=== PATIENT | male | born 1980 | race Caucasian/White ===

== ENCOUNTER 2018-10-05 10:16 | Day surgery (SDC) | payer BC ==
[2018-10-04 10:48] VITALS: BMI 28.3
[2018-10-05] MEDS ORDERED: Clindamycin/D5W 600 mg/50 ml Premix Bag ONE (11:33)
[2018-10-05] MEDS ORDERED: Fentanyl 100 MCG/2 ML VIAL ONE ×2 (11:36→14:05)
[2018-10-05] MEDS ORDERED: Midazolam HCl 2 mg/2 ml Vial ONE (11:36)
[2018-10-05 11:39] LABS: Hemoglobin 15.5 g/dL (14.0-18.0); Mean Corpuscular HGB CONC 34.4 g/dL (32.0-36.0); Mean Corpuscular Hemoglobin 32.1 pg (27.0-31.0); Mean Corpuscular Volume 93.5 fL (78.0-98.0); Mean Platelet Volume 8.8 fL (7.4-10.4); Platelet Count 274 thou/uL (130-400); RBC Distribution Width 11.6 % (11.5-14.5); Red Blood Cell (RBC) Count 4.82 mill/uL (4.70-6.10); White Blood Cell (WBC) Count 5.7 thou/uL (4.8-10.8)
[2018-10-05] MEDS ORDERED: Lidocaine 1% (PF) 30 ML VIAL ONE (11:47)
[2018-10-05] MEDS ORDERED: Bupivacaine HCl 0.5%/Epinephrine 1:200,000/PF 30 ml Vial ONE ×2 (13:14→15:48)
--- NOTE | 2018-10-05 14:20 | RAD ---
TWO AP INTRAOPERATIVE FLUOROSCOPIC IMAGES LEFT ELBOW/FOREARM: Date: 10-05-18 History: Left biceps tendon repair. FINDINGS/IMPRESSION: There is a small metallic bar overlying the proximal fibula likely related to patient's history of bi ceps tendon repair. Correlation with intraoperative findings is recommended. POS: Oksana
[2018-10-05] MEDS ORDERED: HYDROcodone/Acetaminophen 5/325 mg Tablet ONE (15:28)
--- NOTE | 2018-10-05 15:56 | OP ---
DATE OF PROCEDURE: 10/05/2018 PREOPERATIVE DIAGNOSIS: Left distal biceps rupture. POSTOPERATIVE DIAGNOSIS: Left distal biceps rupture. PROCEDURE PERFORMED: Left distal biceps repair. ASSOCIATE MEDIA DIRECTOR: Bandar Cha PA-C. ANESTHESIA: Pierre. The patient received an LMA supraclavicular single shot and 10 mL of Marcaine with epinephrine 0.5% within the wound. ESTIMATED BLOOD LOSS: 20 mL. TOURNIQUET TIME: 49 minutes at 250 mmHg. ANTIBIOTICS: Clindamycin 600 mg. The patient received Arthrex biceps tendon repair kit with TightRope. COMPLICATIONS: None. HISTORY OF PRESENT ILLNESS: Mr. 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 The patient had MRI evidence of a full-thickness biceps tendon tear. I discussed with the patient the risks and benefits of biceps tendon repair to include pain, scar, bleeding, infection, damage to vital structures, nerves, arteries and tendons, need for further surgery, failure of procedure, continued pain despite surgical intervention of the patient, and rerupture of the tendon. The patient understood the risks and benefits of the procedure and would like to proceed. DESCRIPTION OF PROCEDURE: Time-out was performed designating the patient's left upper extremity as the operative site, based on site, consents, and marking. After time-out, the patient's tourniquet was brought up for 49 minutes, I made an incision down through the patient in an oblique fashion along the border of the brachioradialis breaking back across the flexor crease just slightly to expose the patient's first at the lateral antebrachial cutaneous nerve which was protected and retracted laterally. We then found the patient's interval between his pronator and his brachialis came down onto, blunt dissected down into the remnant of biceps sheath and found the patient's leash of Claus, bluntly dissect down and find the patient's bicipital tuberosity. The biceps and lacertus was ruptured and torn off. The patient's biceps were retracted. We pulled it out to length. It looked little tendinopathic and thin_, but I still had a full length of the tendon. I oversewed some of the sheath to the biceps by using my running #2 FiberLoop and passed through about eight passes and passed it out at the end of the tendon. I felt like I was happy with the 2nd half size and moved back to the patient's passing the TightRope underneath the leash of Claus and moved back to the patient's tuberosity. I looked under radiographic findings, it shows in the tuberosity I drilled bicortically. I then drilled a 7.5 and passed my button in and flipped it, and folded the tendon underneath the leash of Claus to ensure I had good firm fixation, and pulled it taut. The patient was about 30 degrees taut. I pulled it as tight as I could. I then passed sutures through the biceps and pulled again and then sewed down holding the biceps in place, was happy with patient's repair. We then washed and we closed with 2-0 and 3-0 nylon and placed a 10 mL of Marcaine into the open space with bleeding. Because the patient had some tendinopathy, I did not like the patient's biceps, I put him in a splint, which I will keep on just for one week before FROM range of motion. He follow up with me in about 10 to 14 days to remove sutures and begin more formal range of motion. Job ID: [id number] [facility]
[2018-10-05] MEDS ORDERED: Lidocaine 1% PF 5 ML VIAL ONE (17:25)
[2018-10-05] MEDS ORDERED: PROPOFOL 200 MG/20 ML VIAL ONE (17:25)
== END 2018-10-05 16:30 | disposition home or self-care (01) ==
LOC: SDC 10:16
PROVIDERS: ATTEND Orthopaedic Surgery
PROC: 0LM40ZZ Reattachment of Left Upper Arm Tendon, Open Approach (ICD-10-PCS; principal; 2018-10-05)
PROC: 3E0T3BZ Introduction of Anesthetic Agent into Peripheral Nerves and Plexi, Percutaneous Approach (ICD-10-PCS; 2018-10-05)
DX: S46.212A Strain of muscle, fascia and tendon of other parts of biceps, left arm, initial encounter (principal); G89.18 Other acute postprocedural pain; Z79.899 Other long term (current) drug therapy; Z88.0 Allergy status to penicillin; Z91.040 Latex allergy status; X58.XXXA Exposure to other specified factors, initial encounter; Y92.71 Barn as the place of occurrence of the external cause
CPT/HCPCS: 36415; 76000; 85027; C1713; J0670; J2001; J2250; J2704; J3010; J3490